=== PATIENT | female | born 1965 | race Caucasian/White ===

== ENCOUNTER 2018-01-27 09:39 | Emergency (ER) | payer OTHER ==
[~2018-01-27] VITALS: Ht 162.6 cm; Wt 119.9 kg
[~2018-01-27 09:39] MED LIST: ACTOS15 MG PO; ALKA-SELTZER O1 EACH PO; ERGOCALCIF50000 UNIT PO; GLUCOSAMINE &1 EAC1 PO; GLUCOTROL XL10 MG PO; HYDROCODON-ACE1 EAC7 PO; JARDIANCE25 MG PO; LO-DOSE ASPIRIN81 M1 PO; MAG-TAB SR84 MG PO; MOTRIN600 MG PO; NATURAL VITA100 UNIT PO; NEXIUM20 MG PO; PRAVASTATIN SOD40 MG PO; TURMERIC500 M1 PO; TYLENOL EXTRA500 MG PO; VITAMIN A8000 UNIT PO; VITAMIN D31000 UNI2 PO; VITAMIN E100 UNIT PO; [UNRECOGNIZED DRUG - OTHER] TP
[2018-01-27] MEDS ORDERED: ULTRACET1 TABLET PO (12:45)
[2018-01-27 12:50] VITALS: BP 159/87
== END 2018-01-27 12:51 | disposition home or self-care (01) ==
LOC: EME 09:39
DX: S40.012A Contusion of left shoulder, initial encounter (principal); W01.0XXA Fall on same level from slipping, tripping and stumbling without subsequent striking against object, initial encounter; E11.9 Type 2 diabetes mellitus without complications; Z88.5 Allergy status to narcotic agent; Z88.1 Allergy status to other antibiotic agents; Z91.040 Latex allergy status
CPT/HCPCS: 73030; 73080; 73110; 99281; 99284